=== PATIENT | female | born 1940 | race Caucasian/White ===

== ENCOUNTER 2017-03-17 17:29 | Emergency (ER) | payer BC ==
--- NOTE | 2017-03-17 19:26 | Emergency Department Record ---
History of Present Illness - General Chief complaint: Eye Problem Stated complaint: RED EYE Time Seen by Provider: 03/17/17 19:13 Source: Patient Mode of Arrival: Ambulatory Limitations: No limitations - History of Present Illness Initial comments: pt was found to have a red eye today. she has no pain and no vision loss and she did not know she had a red eye. she is on coumadin. she had a recent fall a month ago when she hit her head. she also has a hx of aneurysms MD chief complaint: Eye redness Onset/Timin -: Days(s) Onset Description: Sudden Location: Right eye If Injury: None Eye Symptoms: Redness Treatments Prior to Arrival: None - Related Data Allergies Allergy/AdvReac Type Severity Reaction Status Date / Time Penicillins Allergy ANAPHYLAXIS Verified 03/17/17 18:08 Travel Screening - Travel/Exposure Within Last 30 Days Have you traveled within the last 30 days?: No - Travel/Exposure Within Last Year Have you traveled outside the [place] in the last year?: No - Additonal Travel Details Have you been exposed to anyone with a communicable illness?: No - Travel Symptoms Symptom Screening: None Review of Systems Reviewed: No additional complaints except as noted below Constitutional: Reports: As per HPI. Denies: Chills, Fever, Malaise, Night sweats, Weakness, Weight change Eyes: Reports: As per HPI. Denies: Eye discharge, Eye pain, Photophobia, Vision change ENT: Reports: As per HPI. Denies: Congestion, Dental pain, Ear pain, Epistaxis , Hearing loss, Throat pain Respiratory: Reports: As per HPI. Denies: Cough, Dyspnea, Hemoptysis, Stridor, Wheezes Cardiovascular: Reports: As per HPI. Denies: Arrhythmia, Chest pain, Dyspnea on exertion, Edema, Murmurs, Orthopnea, Palpitations, Paroxysmal nocturnal dyspnea, Rheumatic Fever, Syncope Endocrine: Reports: As per HPI. Denies: Fatigue, Heat or cold intolerance, Polydipsia, Polyuria Gastrointestinal: Reports: As per HPI. Denies: Abdominal pain, Constipation, Diarrhea, Hematemesis, Hematochezia, Melena, Nausea, Vomiting Genitourinary: Reports: As per HPI. Denies: Abnormal menses, Discharge, Dyspareunia, Dysuria, Frequency, Hematuria, Incontinence, Retention, Urgency Musculoskeletal: Reports: As per HPI. Denies: Arthralgia, Back pain, Gout, Joint swelling, Myalgia, Neck pain Skin: Reports: As per HPI. Denies: Bruising, Change in color, Change in hair/ nails, Lesions, Pruritus, Rash Neurological: Reports: As per HPI. Denies: Abnormal gait, Confusion, Headache, Numbness, Paresthesias, Seizure, Tingling, Tremors, Vertigo, Weakness Psychiatric: Reports: As per HPI. Denies: Anxiety, Auditory hallucinations, Depression, Homicidal thoughts, Suicidal thoughts, Visual hallucinations Hematological/Lymphatic: Reports: As per HPI. Denies: Anemia, Blood Clots, Easy bleeding, Easy bruising, Swollen glands Past Medical History - SOCIAL HISTORY Smoking Status: Current every day smoker Alcohol Use: Rare Drug Use: None - RESPIRATORY Hx Respiratory Disorders: Yes Hx COPD: Yes - CARDIOVASCULAR Hx Cardio Disorders: Yes Hx Hypertension: Yes Hx Irregular Heartbeat: Yes (a fib) - NEURO Hx Neuro Disorders: Yes Hx Neuropathy: Yes Hx TIA: Yes Comment:: brain aneurysm - GI Hx GI Disorders: No - Hx Genitourinary Disorders: No - ENDOCRINE Hx Endocrine Disorders: No - MUSCULOSKELETAL Hx Musculoskeletal Disorders: Yes Hx Arthritis: Yes - PSYCH Hx Psych Problems: No - HEMATOLOGY/ONCOLOGY Hx Hematology/Oncology Disorders: No Family Medical History Any Significant Family History?: No Hx Stroke: Mother Physical Exam - General General Appearance: Alert, Oriented x3, Cooperative, Mild distress - Head Head exam: Normal inspection - Eye Eye exam: Normal appearance, PERRL, Conjunctival injection, EOMI, Other ( subconjunctival hemorrhage) Pupils: Normal accommodation Image of Eyes: 1 - erythema, nontender - ENT ENT exam: Normal exam, Mucous membranes moist, Normal external ear exam, Normal orophraynx Ear exam: Normal external inspection. negative: External canal tenderness Nasal Exam: Normal inspection. negative: Discharge, Sinus tenderness Mouth exam: Normal external inspection, Tongue normal Teeth exam: Normal inspection. negative: Dental caries Throat exam: Normal inspection. negative: Tonsillar erythema, Tonsillar exudate - Neck Neck exam: Normal inspection, Full ROM. negative: Tenderness - Respiratory Respiratory exam: Normal lung sounds bilaterally. negative: Respiratory distress - Cardiovascular Cardiovascular Exam: Regular rate, Normal rhythm, Normal heart sounds - GI/Abdominal GI/Abdominal exam: Soft, Normal bowel sounds. negative: Tenderness - Rectal Rectal exam: Deferred - exam: Deferred - Extremities Extremities exam: Normal inspection, Full ROM, Normal capillary refill. negative: Tenderness - Back Back exam: Reports: Normal inspection, Full ROM. Denies: Muscle spasm, Rash noted, Tenderness - Neurological Neurological exam: Alert, CN II-XII intact, Normal gait, Oriented X3 - Psychiatric Psychiatric exam: Normal affect, Normal mood - Skin Skin exam: Dry, Intact, Normal color, Warm Course Vital Signs 03/17/17 17:52 Temperature 99.0 F Pulse Rate 61 Respiratory 16 Rate Blood Pressure 118/68 Pulse Ox 97 - Reevaluation(s) Reevaluation #1: 03/17/17 20:50 pt has a lesion in her scan that was previously present and has gotten bigger. radiologist feels it is increasing size of aneurysm. pt is asymptomatic. this was d/w dr aguirre who wanted coumadin left as it is. pt told to f/u mon w dr aguirre and neurosurgery Reevaluation #2: 03/17/17 21:03 neurosurgery d/w . she refused intervention and is aware of risks Medical Decision Making - Lab Data Result diagrams: 03/17/17 19:28 Disposition Disposition: Discharge Clinical Impression: Subconjunctival hemorrhage of right eye, Brain aneurysm Disposition: Home, Self-Care Condition: (1) Good Instructions: Subconjunctival Hemorrhage (ED) Additional Instructions: follow up with family doctor on sunday without fail and with neurosurgery. return sooner if worse. Forms: Patient Portal Access Quality - Quality Measures Quality Measures: N/A - Blood Pressure Screening Does Patient Have Any of the Following: No Blood Pressure Classification: Normal BP Reading Systolic Measurement: 118 Diastolic Measurement: 68 Screening for High Blood Pressure: < Normal BP, F/U Not Required > [G8783]
[2017-03-17 19:34] LABS: BASO % 0.2 % (0-6); EOS % 2.8 % (0-6); GRAN % 55.7 % (47-80); HEMATOCRIT 39.7 % (35.0-47.0); HEMOGLOBIN 13.1 gm/dl (11.6-16.0); LYMPH % 30.3 % (16-45); MEAN CELL VOLUME 97.8 fl (81-97); MEAN CORPUSCULAR HEMOGLOBIN 32.3 pg (27-33); MEAN PLATELET VOLUME 9.9 fl (7.4-10.4); PLATELET COUNT 273 K/uL (130-400); RED BLOOD COUNT 4.06 M/uL (3.80-5.40); WHITE BLOOD COUNT W/O DIFF 9.1 K/uL (4.2-12.2)
[2017-03-17 19:47] LABS: INR 1.58; PROTHROMBIN TIME (PATIENT) 17.1 SECONDS (9.5-12.1)
--- NOTE | 2017-03-18 12:43 | CT SCAN REPORT ---
EXAM: CT SCAN HEAD WO CONTRAST HISTORY: RED EYE. TECHNIQUE: Sequential axial images were obtained from the foramen magnum to the vertex without contrast administration. FINDINGS: There is interval increase in size of the hyperdense lesion in the left middle cranial fossa. This measures 2.0 cm x 1.9 cm. This previously measured 1.2 cm x 1.3 cm. This likely represents aneurysm. There is post-op right frontal craniotomy defect. There are aneurysm clips in the right middle cerebral artery territory. There is encephalomalacia change in the right anterior middle cranial fossa. No acute intracranial abnormality is appreciated. IMPRESSION: 1. INTERVAL INCREASE IN SIZE OF THE PRESUMED ANEURYSM IN THE LEFT ANTERIOR MIDDLE CRANIAL FOSSA. THIS MEASURES 2.0 X 1.9 CM. THIS PREVIOUSLY MEASURED 1.2 X 1.3 CM. 2. POST-OP ENCEPHALOMALACIA CHANGES IN THE RIGHT ANTERIOR MIDDLE CRANIAL FOSSA FROM PREVIOUS ANEURYSM CLIP. 3. PERIVENTRICULAR SMALL VESSEL ISCHEMIA. 4. 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 THIS MEASURES 11 MM. THIS APPEARS STABLE WHEN COMPARED TO THE PRIOR EXAMINATION. JOB NUMBER: [id number] [facility]
== END 2017-03-17 21:16 | disposition left against medical advice (07) ==
LOC: ER 17:29
DX: H11.31 Conjunctival hemorrhage, right eye (principal); I67.1 Cerebral aneurysm, nonruptured; I48.91 Unspecified atrial fibrillation; I10 Essential (primary) hypertension; Z79.01 Long term (current) use of anticoagulants; F17.210 Nicotine dependence, cigarettes, uncomplicated
CPT/HCPCS: 70450; 85025; 85610; 99283; 99284